=== PATIENT | female | born 1980 | race Caucasian/White ===

== ENCOUNTER 2016-09-15 11:36 | Inpatient (IN) | payer OTHER ==
[2016-09-15] MEDS ORDERED: TUBERCULIN PPD 5 TU/0.1ML SYRINGE (IN PATIENT USE ONLY) ID ONE (12:32)
[2016-09-15 13:02] LABS: BASOPHIL 0.3 % (0-2.0); EOSINOPHIL 0.5 % (0-4.5); MCHC 33.8 g/dl (32.0-36.0); MEAN CELL VOLUME 88.6 fl (80-96); MEAN PLT VOLUME 8.6 fl (7.5-11.1); NEUTROPHILS 71.5 % (42.8-82.8); PLATELET COUNT 197 K/MM3 (134-434); RDW 13.9 % (11.6-15.6); WHITE BLOOD COUNT 7.2 K/mm3 (4.0-10.0)
[2016-09-15 13:27] LABS: CALCIUM 8.2 mg/dL (8.5-10.1); CREATININE 0.7 mg/dL (0.55-1.02)
[2016-09-15 13:39] LABS: INR 0.91 (0.82-1.09)
[2016-09-15 13:42] LABS: ACTIVATED PTT 26.7 SECONDS (26.9-34.4)
[2016-09-15 13:54] VITALS: BMI 24.8
[2016-09-15] MEDS ORDERED: DINOPROSTONE 10 MG VAGINAL SUPPOSITORY VG ONE (17:16)
--- NOTE | 2016-09-15 17:17 | PN ---
Progress Note (short form) - Note Progress Note: 440 pm cx 1 cm, 50, vx -2 mr, clear , cervidil rba discussed, agreed , cervidil inserted
--- NOTE | 2016-09-15 17:24 | HP ---
Past Medical History - Primary Care Physician PCP:: Sacha Bajwa - Admission Chief Complaint: 39.4 weeks, rom, ama History of Present Illness: 36 yo f edc 09/18/16 by sono c/o rom since 930 am today, clear fluid, no pain, no fever, no dysuria. cx 1 cm, 50 vx -2 mr , clear , fhr cat 1, not aware of contraction, hx of vanishing twins, elevated 1 hr gtt, negative 3 hr History Source: Patient Limitations to Obtaining History: No Limitations - Past Medical History ...: 2 ...Para: 1 ...Term: 1 ...: 0 ...Spon : 0 ...Induced : 0 ...Multiple Gestation: 0 ...LMP: 12/03/15 ... Weeks Gestation by Dates: 41.0 ...EDC by Dates: 09/08/16 ...EDC by Sono: 09/18/16 - Past Surgical History Hx Myomectomy: No Hx Transabdominal Cerclage: No - Smoking History Smoking history: Never smoked Have you smoked in the past 12 months: No - Alcohol/Substance Use Hx Alcohol Use: No - Social History Usual Living Arrangement: Yes: With Spouse History of Recent Travel: No Home Medications - Allergies Allergies/Adverse Reactions: Allergies Allergy/AdvReac Type Severity Reaction Status Date / Time Penicillins Allergy Intermediate Difficulty Verified 09/15/16 13:03 Breathing - Home Medications Home Medications: Ambulatory Orders Ferrous Sulfate 325 mg PO DAILY 09/15/16 Vitamins (Sjr) - 1 tab PO DAILY 09/15/16 Review of Systems - Review of Systems Constitutional: reports: No Symptoms Eyes: reports: No Symptoms HENT: reports: No Symptoms Neck: reports: No Symptoms Cardiovascular: reports: No Symptoms Respiratory: reports: No Symptoms Gastrointestinal: reports: No Symptoms Genitourinary: reports: No Symptoms Breasts: reports: No Symptoms Reported Musculoskeletal: reports: No Symptoms Integumentary: reports: No Symptoms Neurological: reports: No Symptoms Endocrine: reports: No Symptoms Hematology/Lymphatic: reports: No Symptoms Psychiatric: reports: No Symptoms Physical Exam - Maternity Vital Signs: Vital Signs Temperature 97.9 F 09/15/16 14:00 Pulse Rate 102 H 09/15/16 16:00 Respiratory Rate 20 09/15/16 16:00 Blood Pressure 106/72 09/15/16 16:00 O2 Sat by Pulse Oximetry (%) Constitutional: Yes: Well Nourished, No Distress, Calm Eyes: Yes: WNL, Conjunctiva Clear, EOM Intact HENT: Yes: WNL, Atraumatic, Normocephalic Neck: Yes: WNL, Supple, Trachea Midline Cardiovascular: Yes: WNL, Regular Rate and Rhythm Breast(s): Yes: WNL - Abdominal Exam/OB Fundal Height: 40 Number of Fetuses: Single Presentation: Vertex Contractions: Yes Regularity: Irritability Intensity: Unaware Monitor Mode: External Heart Rate Location: [facility] Category: I Accelerations: Uniform Decelerations: None - Vaginal Exam/OB Vaginal Bleediing: No Speculum Exam: No Dilatation (cm): 1 cm Effacement (%): 50 Amniotic Membrane Status: Ruptured Nitrazine Test: Positive Amniotic Fluid: Yes: Clear Presentation: Vertex/Position Station: -2 - Physical Exam Edema: Yes Edema: LLE: Trace, RLE: Trace Deep Tendon Reflex Grade: Normal +2 Psychiatric: Yes: WNL - Labs Lab Results: CBC, BMP 09/15/16 12:35 09/15/16 12:35 Hemorrhage Risk Assessment - Risk Factors Risk Score: 0 Risk Level: Low Risk Problem List - Problems (1) with 39 completed weeks gestation Code(s): Z3A.39 - 39 WEEKS GESTATION OF (2) membrane rupture Code(s): JMX6072 - (3) Advanced maternal age (AMA) in Code(s): IIR1921 - Assessment/Plan plan admit, expectant management vs cervidil and pitocin induction discussed, agreed to have cervidil induction, rba expalined
[2016-09-15] MEDS ORDERED: PROMETHAZINE HCL 25 MG/1 ML VIAL IVPUSH ONE (21:47)
[2016-09-15] MEDS ORDERED: BUTORPHANOL TARTRATE 1 MG/ML VIAL IVPUSH PRN (21:47)
--- NOTE | 2016-09-15 21:47 | PN ---
Progress Note (short form) - Note Progress Note: cont to leak fluid, no pain cx 1 cm 50 vx -2 mr, fhr cat 1 , cervidil was removed , advised pitocin, rba discussed Problem List - Problems (1) with 39 completed weeks gestation Code(s): Z3A.39 - 39 WEEKS GESTATION OF (2) membrane rupture Code(s): TAC9017 - (3) Advanced maternal age (AMA) in Code(s): HQN2599 -
[2016-09-15] MEDS: OXYTOCIN 15 UNITS/ LR 250 ML 250 ML IVPB SCH (21:55)
[2016-09-15] MEDS: DEXTROSE 5%-LACTATED RINGERS 1,000 ML IV SCH (21:55)
[2016-09-15] MEDS ORDERED: OXYTOCIN 15 UNITS/ LR 250 ML 250 ML IVPB SCH (22:00)
[2016-09-16] MEDS ORDERED: FENTANYL/BUPIVACAINE/NS/PF - PCEA - 50 ML DISP.SYRIN EP SCH (02:45)
[2016-09-16] MEDS: ELECTROLYTE-148 SOLN 1,000 ML IV SCH ×2 (02:45→05:00)
[2016-09-16] MEDS ORDERED: CLINDAMYCIN 900 MG PREMIX IVPB 50 ML IVPB ONE (03:45)
[2016-09-16] MEDS ORDERED: ELECTROLYTE-148 SOLN 500 ML IV SCH (03:45)
[2016-09-16] MEDS: D5W-LR W/ 20 UNITS OXYTOCIN 1,000 ML IV SCH ×2 (07:15→08:44)
[2016-09-16] MEDS ORDERED: BENZOCAINE 28 GM HEMORRHOIDAL OINTMENT TP PRN (07:30)
[2016-09-16] MEDS ORDERED: WITCH HAZEL 50% (TUCKS) 40 PAD/JAR PAD TP PRN (07:30)
[2016-09-16] MEDS ORDERED: METHYLERGONOVINE MALEATE 0.2 MG/1 ML AMP IM PRN (07:30)
[2016-09-16] MEDS ORDERED: BISACODYL 10 MG SUPP.RECT RC PRN (07:30)
[2016-09-16] MEDS ORDERED: BENZOCAINE 20% 57 GM BOTTLE TP PRN (07:30)
[2016-09-16] MEDS: FERROUS SO4 325 MG TABLET (FP) PO SCH ×3 (09:07→22:00)
[2016-09-16] MEDS: ACETAMINOPHEN 325 MG TABLET (FP) PO PRN ×2 (09:08→17:52)
[2016-09-16] MEDS: PRENATAL VITAMINS W/ FOLIC ACID TABLET (FP) PO SCH (09:09)
[2016-09-16] MEDS ORDERED: CLINDAMYCIN 600MG PREMIX IVPB 50 ML IVPB SCH (09:45)
[2016-09-16] MEDS ORDERED: PRENATAL VITAMINS W/ FOLIC ACID TABLET (FP) PO SCH (10:00)
[2016-09-16] MEDS: IBUPROFEN 600 MG TABLET (FP) PO PRN (17:54)
[2016-09-16] MEDS: DEXTROSE 5%-LACTATED RINGERS 1,000 ML IV SCH (17:57)
[2016-09-16] MEDS: OXYTOCIN 15 UNITS/ LR 250 ML 250 ML IVPB SCH (22:40)
[2016-09-17] MEDS: IBUPROFEN 600 MG TABLET (FP) PO PRN (05:08)
[2016-09-17] MEDS: ACETAMINOPHEN 325 MG TABLET (FP) PO PRN (05:10)
[2016-09-17] MEDS: FERROUS SO4 325 MG TABLET (FP) PO SCH ×3 (09:26→22:08)
[2016-09-17] MEDS: PRENATAL VITAMINS W/ FOLIC ACID TABLET (FP) PO SCH (09:27)
[2016-09-17 09:54] LABS: BASOPHIL 0.5 % (0-2.0); MCH 29.6 pg (25.7-33.7); MCHC 33.1 g/dl (32.0-36.0); MEAN CELL VOLUME 89.4 fl (80-96); MEAN PLT VOLUME 8.6 fl (7.5-11.1); NEUTROPHILS 76.8 % (42.8-82.8); PLATELET COUNT 192 K/MM3 (134-434); RDW 14.2 % (11.6-15.6); WHITE BLOOD COUNT 11.7 K/mm3 (4.0-10.0)
[2016-09-17] MEDS ORDERED: SENNOSIDES/DOCUSATE COMBO (SENNA PLUS) TABLET (UD) PO PRN (22:00)
--- NOTE | 2016-09-17 23:28 | PN ---
Progress Note (short form) - Note Progress Note: ppd 1 doing well, no c/o voids ok CBC, BMP 09/17/16 09:39 09/15/16 12:35 Last Vital Signs Temp Pulse Resp BP Pulse Ox 98.3 F 98 H 18 100/51 100 09/17/16 21:39 09/17/16 21:39 09/17/16 21:39 09/17/16 21:39 09/16/16 08:33 abdomen soft, uterus firm, non tender lochia mild no calf tenderness plan ambulate , d/c home in am Problem List - Problems (1) with 39 completed weeks gestation Code(s): Z3A.39 - 39 WEEKS GESTATION OF (2) membrane rupture Code(s): [id number] - (3) Advanced maternal age (AMA) in Code(s): AGE2786 -
[2016-09-18 08:43] VITALS: BP 104/76; PULSE 67; TEMP 98.6
[2016-09-18] MEDS: FERROUS SO4 325 MG TABLET (FP) PO SCH ×2 (09:07→09:09)
[2016-09-18] MEDS: PRENATAL VITAMINS W/ FOLIC ACID TABLET (FP) PO SCH (09:08)
--- NOTE | 2016-09-18 10:53 | DS ---
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 Vital Signs: Vital Signs Temperature 98.6 F 09/18/16 08:41 Pulse Rate 67 09/18/16 08:41 Respiratory Rate 20 09/18/16 08:41 Blood Pressure 104/76 09/18/16 08:41 O2 Sat by Pulse Oximetry (%) 100 09/16/16 08:33 Constitutional: Yes: Well Nourished, No Distress, Calm Eyes: Yes: WNL, Conjunctiva Clear, EOM Intact HENT: Yes: WNL, Atraumatic, Normocephalic Neck: Yes: WNL, Supple, Trachea Midline Cardiovascular: Yes: WNL, Regular Rate and Rhythm Respiratory: Yes: WNL, Regular, CTA Bilaterally Gastrointestinal: Yes: WNL ...Rectal Exam: Yes: WNL Renal/: Yes: WNL ....Post : Yes: Uterus firm, Uterus non-tender, Slight lochia rubra Breast(s): Yes: WNL Musculoskeletal: Yes: WNL Extremities: Yes: WNL Edema: No Integumentary: Yes: WNL Neurological: Yes: WNL, Alert, Oriented ...Motor Strength: WNL Psychiatric: Yes: WNL, Alert, Oriented Labs: CBC, BMP 09/17/16 09:39 09/15/16 12:35 Delivery - Delivery Vaginal Delivery: Spontaneous (no complication) Type of Anesthesia: Local, Epidural Episiotomy/Laceration: 1st degree EBL (cc): 300 Delivery, Single - Stages of Labor Date 1st Stage Initiatied: 09/15/16 Time 1st Stage Initiated: 22:00 Date 2nd Stage Initiated: 09/16/16 Time 2nd Stage Initiated: 07:00 Date of Delivery: 09/16/16 Time of Delivery: 07:10 Time Placenta Delivered: 07:15 Placenta: Yes: Spontaneous - Condition of Maintenance Technician 3Rd Shift/Regional Sales Representative Present: No Infant Gender: Male Weight: 7 lb 6 oz Position: Left, OA Total Hours ROM (Hrs/Mins): 21hrs 45min - 1 Minute Total Score: 9 5 Minutes Total Score: 9 - Feeding Plan Initial Plan: Exclusive throughout hospitalization Discharge Summary Reason For Visit: LABOR Current Active Problems Advanced maternal age (AMA) in (Acute) membrane rupture (Acute) with 39 completed weeks gestation (Acute) Procedures: Principal: - Instructions Diet, Activity, Other Instructions: return to office in 6 weeks. call for appointment. Referrals: Sacha Bajwa MD [Staff Physician] - - Home Medications Comprehensive Discharge Medication List: Ambulatory Orders Ferrous Sulfate 325 mg PO DAILY 09/15/16 Vitamins (Sjr) - 1 tab PO DAILY 09/15/16 Ibuprofen [Motrin -] 600 mg PO QID #28 tablet 09/18/16
== END 2016-09-18 11:50 | disposition home or self-care (01) | DRG 775 ==
LOC: JLDR 11:36 → J3W 09-16 08:59
PROVIDERS: ADMIT Obstetrics & Gynecology; ATTEND Obstetrics & Gynecology
PROC: 0HQ9XZZ Repair Perineum Skin, External Approach (ICD-10-PCS; principal; 2016-09-16)
PROC: 10E0XZZ Delivery of Products of Conception, External Approach (ICD-10-PCS; 2016-09-16)
DX: O70.0 First degree perineal laceration during delivery (principal); Z3A.39 39 weeks gestation of pregnancy; Z37.0 Single live birth
CPT/HCPCS: 36415; 59409; 80048; 85025; 85610; 85730; 86593; 86762; 86850; 86900; 86901; 87340

== ENCOUNTER 2019-03-08 07:05 | Inpatient (IN) | payer BC ==
[2019-03-08 07:41] VITALS: BMI 23.8
[2019-03-08] MEDS ORDERED: BUTORPHANOL TARTRATE 1 MG/ML VIAL IVPUSH ONE (08:02)
[2019-03-08] MEDS ORDERED: PROMETHAZINE HCL 25 MG/1 ML VIAL IVPUSH ONE (08:02)
[2019-03-08] MEDS ORDERED: DEXTROSE 5%-LACTATED RINGERS 1,000 ML IV SCH (08:15)
[2019-03-08] MEDS ORDERED: OXYTOCIN 30 UNITS in 0.9% NS 30 UNIT/500 ML INFUS.BAG IVPB SCH (08:15)
--- NOTE | 2019-03-08 08:26 | HP ---
Past Medical History - Primary Care Physician PCP:: Sacha Bajwa - Admission Chief Complaint: 40.1 weeks, AMA History of Present Illness: 38 yo edc 03/07 40.1 weeks, ama admitted for pitocin induction, cx 3 cm 50 vx -3 ,mi, fhr cat 1 ,no contraction . pitocin risks discussed, ulternatives explained History Source: Patient Limitations to Obtaining History: No Limitations - Past Medical History ...: 3 ...Para: 2 ...Term: 2 ...LMP: 05/29/18 ...EDC by Sono: 03/07/19 - Past Surgical History Hx Myomectomy: No Hx Transabdominal Cerclage: No - Smoking History Smoking history: Never smoked Have you smoked in the past 12 months: No - Alcohol/Substance Use Hx Alcohol Use: No - Social History Usual Living Arrangement: Yes: With Spouse History of Recent Travel: No Home Medications - Allergies Allergies/Adverse Reactions: Allergies Allergy/AdvReac Type Severity Reaction Status Date / Time Penicillins Allergy Intermediate Difficulty Verified 09/15/16 13:03 Breathing - Home Medications Home Medications: Ambulatory Orders Vitamins (Sjr) - 1 tab PO DAILY 09/15/16 Review of Systems - Review of Systems Constitutional: reports: No Symptoms Eyes: reports: No Symptoms HENT: reports: No Symptoms Neck: reports: No Symptoms Cardiovascular: reports: No Symptoms Respiratory: reports: No Symptoms Gastrointestinal: reports: No Symptoms Genitourinary: reports: No Symptoms Breasts: reports: No Symptoms Reported Musculoskeletal: reports: No Symptoms Integumentary: reports: No Symptoms Neurological: reports: No Symptoms Endocrine: reports: No Symptoms Hematology/Lymphatic: reports: No Symptoms Psychiatric: reports: No Symptoms Physical Exam - Maternity Vital Signs: Vital Signs Temperature 98.6 F 03/08/19 07:36 Pulse Rate 120 H 03/08/19 07:36 Respiratory Rate 20 03/08/19 07:36 Blood Pressure 103/65 03/08/19 07:36 O2 Sat by Pulse Oximetry (%) Constitutional: Yes: Well Nourished, No Distress, Calm Eyes: Yes: WNL, Conjunctiva Clear, EOM Intact HENT: Yes: WNL, Atraumatic, Normocephalic Neck: Yes: WNL, Supple, Trachea Midline Cardiovascular: Yes: WNL, Regular Rate and Rhythm Breast(s): Yes: WNL - Abdominal Exam/OB Fundal Height: 40 Number of Fetuses: Single Presentation: Vertex Contractions: No Intensity: Unaware Monitor Mode: External Heart Rate Location: [facility] Category: I Accelerations: Uniform Decelerations: None - Vaginal Exam/OB Vaginal Bleediing: No Speculum Exam: No Dilatation (cm): 3cm Effacement (%): 50 Amniotic Membrane Status: Intact Presentation: Vertex/Position Station: -3 - Physical Exam Musculoskeletal: Yes: WNL Extremities: Yes: WNL Edema: LLE: Trace, RLE: Trace Deep Tendon Reflex Grade: Normal +2 ...Motor Strength: WNL Psychiatric: Yes: WNL Hemorrhage Risk Assessment - Risk Factors Medium Risk Factors: Yes: None High Risk Factors: Yes: None Risk Score: 1 Risk Level: Medium Risk Problem List - Problems (1) Post-term , 40-42 weeks of gestation Code(s): O48.0 - POST-TERM (2) Advanced maternal age (AMA) in Problems reviewed: Yes Code(s): [id number] - Assessment/Plan admit [facility] pitocin induction pain management
[2019-03-08] MEDS ORDERED: ELECTROLYTE-148 SOLN 1,000 ML IV SCH (08:30)
[2019-03-08 09:12] LABS: BASO % 0.6 % (0-2.0); EOS % 0.6 % (0-4.5); HEMATOCRIT 31.1 % (32.4-45.2); HEMOGLOBIN 10.7 GM/dL (10.7-15.3); LYMPH % 24.1 % (8-40); MCH 30.5 pg (25.7-33.7); MCHC 34.5 g/dl (32.0-36.0); MEAN CELL VOLUME 88.5 fl (80-96); MEAN PLT VOLUME 8.9 fl (7.5-11.1); MONO % 9.4 % (3.8-10.2); NEUT % 65.3 % (42.8-82.8); PLATELET COUNT 193 K/MM3 (134-434); RBC 3.52 M/mm3 (3.60-5.2); RDW 14.7 % (11.6-15.6); WHITE BLOOD COUNT 5.3 K/mm3 (4.0-10.0)
[2019-03-08 09:33] LABS: INR 0.92 (0.83-1.09); PROTHROMBIN TIME (PATIENT) 10.8 SEC (9.7-13.0)
[2019-03-08 09:45] LABS: BLOOD UREA NITROGEN 7.7 mg/dL (7-18); CALCIUM 8.3 mg/dL (8.5-10.1); CREATININE 0.7 mg/dL (0.55-1.3); POTASSIUM 4.3 mmol/L (3.5-5.1)
[2019-03-08] MEDS ORDERED: FENTANYL/BUPIVACAINE/NS/PF - PCEA - 50 ML DISP.SYRIN EP ONE (16:07)
[2019-03-08] MEDS ORDERED: NALOXONE HCL 0.4 MG/ML VIAL IVPUSH PRN (16:33)
[2019-03-08] MEDS ORDERED: FENTANYL/BUPIVACAINE/NS/PF - PCEA - 50 ML DISP.SYRIN EP SCH (16:45)
--- NOTE | 2019-03-08 16:48 | PN ---
Progress Note (short form) - Note Progress Note: cx 5 cm 80 vx -2 mi, fhr cat 1, regular contraction, wants epidural Problem List - Problems (1) Post-term , 40-42 weeks of gestation Code(s): O48.0 - POST-TERM (2) Advanced maternal age (AMA) in Code(s): [id number] -
[2019-03-08] MEDS ORDERED: OXYTOCIN 20 UNITS in 0.9% NS 20 UNIT/1,000 ML INFUS.BAG IV ONE (17:45)
[2019-03-08] MEDS ORDERED: LIDOCAINE HCL 1% PRESERVATIVE FREE - 30ML VIAL ONE (17:45)
[2019-03-08] MEDS ORDERED: BISACODYL 10 MG SUPP.RECT RC PRN (18:35)
[2019-03-08] MEDS ORDERED: METHYLERGONOVINE MALEATE 0.2 MG/1 ML AMP IM PRN (18:35)
[2019-03-08] MEDS ORDERED: BENZOCAINE 20% 57 GM BOTTLE TP PRN (18:35)
--- NOTE | 2019-03-08 18:35 | PN ---
Progress Note (short form) - Note Progress Note: had deep variable decel with contraction, after epidural, arom done, pitocin off . lt side, o2 , iv hydration , fluid clear , cx 8cm 100 vx 0 , scalp electrode applied Problem List - Problems (1) Post-term , 40-42 weeks of gestation Code(s): O48.0 - POST-TERM (2) Advanced maternal age (AMA) in Code(s): [id number] -
--- NOTE | 2019-03-08 18:44 | PN ---
Delivery - Delivery Vaginal Delivery: Spontaneous (cx fully dilated ,head delivered , ant. and post , shoulder with no difficulty , live baby boy, 9/9, first degree laceration degree with 2.0 chromic suture , ebl 500 cc, no complication) Type of Anesthesia: Epidural (cx fully dilated ,head on perinum , head delivered , naso pharynx suctioned , ant and post shoulder delivered, live baby boy 9/9. first degree laceration with 2.o chromic ,) Episiotomy/Laceration: Periurethral Extnsion/lac, Cervical Extension/lac EBL (cc): 500 Delivery, Single - Feeding Plan Initial Plan: Exclusive throughout hospitalization
[2019-03-08] MEDS ORDERED: D5W-LR W/ 20 UNITS OXYTOCIN 20 UNIT/1,000 ML INFUS.BAG IV SCH (18:45)
[2019-03-08] MEDS: WITCH HAZEL 50% (TUCKS) 40 PAD/JAR PAD TP PRN (20:10)
[2019-03-08] MEDS: BENZOCAINE 28 GM HEMORRHOIDAL OINTMENT TP PRN (20:10)
[2019-03-08] MEDS: IBUPROFEN 600 MG TABLET (FP) PO PRN (21:55)
[2019-03-08] MEDS: ACETAMINOPHEN 325 MG TABLET (FP) PO PRN (21:55)
[2019-03-09] MEDS: IBUPROFEN 600 MG TABLET (FP) PO PRN ×4 (02:06→19:38)
[2019-03-09] MEDS: ACETAMINOPHEN 325 MG TABLET (FP) PO PRN ×4 (02:08→19:39)
[2019-03-09] MEDS: FERROUS SO4 325 MG TABLET (FP) PO SCH ×3 (09:00→17:34)
[2019-03-09 09:02] LABS: BASO % 0.3 % (0-2.0); EOS % 0.7 % (0-4.5); HEMATOCRIT 28.3 % (32.4-45.2); HEMOGLOBIN 9.7 GM/dL (10.7-15.3); LYMPH % 15.7 % (8-40); MCH 30.6 pg (25.7-33.7); MCHC 34.3 g/dl (32.0-36.0); MEAN CELL VOLUME 89.2 fl (80-96); MEAN PLT VOLUME 9.2 fl (7.5-11.1); MONO % 6.9 % (3.8-10.2); NEUT % 76.4 % (42.8-82.8); PLATELET COUNT 161 K/MM3 (134-434); RBC 3.17 M/mm3 (3.60-5.2); RDW 14.6 % (11.6-15.6); WHITE BLOOD COUNT 10.1 K/mm3 (4.0-10.0)
[2019-03-09] MEDS: PRENATAL VITAMINS W/ FOLIC ACID TABLET (FP) PO SCH (09:44)
--- NOTE | 2019-03-09 10:21 | PN ---
Progress Note (short form) - Note Progress Note: ppd 1, no c/o , no dizziness , no excess vaginal bleeding CBC, BMP 03/09/19 08:41 03/08/19 08:45 Last Vital Signs Temp Pulse Resp BP Pulse Ox 97.6 F 55 L 18 86/52 L 100 03/09/19 06:00 03/09/19 06:00 03/09/19 06:00 03/09/19 06:00 03/08/19 17:40 uterus firm, non tender lochia mild no calf tenderness impressin anemia, asymptomatic advised iron, vit Problem List - Problems (1) Post-term , 40-42 weeks of gestation Code(s): O48.0 - POST-TERM (2) Advanced maternal age (AMA) in Code(s): [id number] -
[2019-03-09] MEDS: BENZOCAINE 28 GM HEMORRHOIDAL OINTMENT TP PRN (18:17)
[2019-03-09] MEDS: WITCH HAZEL 50% (TUCKS) 40 PAD/JAR PAD TP PRN (18:18)
[2019-03-09] MEDS ORDERED: SENNOSIDES/DOCUSATE COMBO (SENNA PLUS) TABLET (UD) PO PRN (22:00)
[2019-03-10] MEDS: ACETAMINOPHEN 325 MG TABLET (FP) PO PRN (06:36)
[2019-03-10] MEDS: IBUPROFEN 600 MG TABLET (FP) PO PRN (06:37)
[2019-03-10 08:06] VITALS: BP 102/61; PULSE 72; TEMP 98.8
[2019-03-10] MEDS: FERROUS SO4 325 MG TABLET (FP) PO SCH (09:00)
--- NOTE | 2019-03-10 09:24 | DS ---
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 Vital Signs: Vital Signs Temperature 98.8 F 03/10/19 08:02 Pulse Rate 72 03/10/19 08:02 Respiratory Rate 18 03/10/19 08:02 Blood Pressure 102/61 03/10/19 08:02 O2 Sat by Pulse Oximetry (%) 100 03/08/19 17:40 Constitutional: Yes: Well Nourished, No Distress, Calm Eyes: Yes: WNL, Conjunctiva Clear, EOM Intact HENT: Yes: WNL, Atraumatic, Normocephalic Neck: Yes: WNL, Supple, Trachea Midline Cardiovascular: Yes: WNL, Regular Rate and Rhythm Respiratory: Yes: WNL, Regular, CTA Bilaterally Gastrointestinal: Yes: WNL ...Rectal Exam: Yes: WNL Renal/: Yes: WNL ....Post : Yes: Uterus firm, Uterus non-tender, Slight lochia rubra Breast(s): Yes: WNL Musculoskeletal: Yes: WNL Extremities: Yes: WNL Edema: No Integumentary: Yes: WNL Neurological: Yes: WNL, Alert, Oriented ...Motor Strength: WNL Psychiatric: Yes: WNL, Alert, Oriented Labs: CBC, BMP 03/09/19 08:41 03/08/19 08:45 Delivery - Delivery Vaginal Delivery: Spontaneous (cx fully dilated ,head delivered , ant. and post , shoulder with no difficulty , live baby boy, 9/9, first degree laceration degree with 2.0 chromic suture , ebl 500 cc, no complication) Type of Anesthesia: Epidural Episiotomy/Laceration: Periurethral Extnsion/lac, Cervical Extension/lac EBL (cc): 500 Delivery, Single - Stages of Labor Date 1st Stage Initiatied: 03/08/19 Time 1st Stage Initiated: 15:00 Date 2nd Stage Initiated: 03/08/19 Time 2nd Stage Initiated: 17:40 Date of Delivery: 03/08/19 Time of Delivery: 17:58 Time Placenta Delivered: 18:08 Placenta: Yes: Spontaneous - Condition of Infant Registration Manager/Civil Engineering Director Present: Yes Name: Cuca Alcocer Gender: Male Weight: 8 lb 15 oz Position: Left, OA Total Hours ROM (Hrs/Mins): 58 min - 1 Minute Total Score: 9 5 Minutes Total Score: 9 - [place] Feeding Plan Initial Plan: Exclusive throughout hospitalization Discharge Summary Reason For Visit: INDUCTION OF LABOR Current Active Problems Advanced maternal age (AMA) in (Acute) Post-term , 40-42 weeks of gestation (Acute) Procedures: Principal: Hospital Course: no complication Condition: Good - Instructions Diet, Activity, Other Instructions: regular diet, no intercourse , follow up office 4 weeks, if fever, pain, heavy vaginal bleeding call Referrals: Sacha Bajwa MD [Staff Physician] - Disposition: HOME - Home Medications Comprehensive Discharge Medication List: Ambulatory Orders Vitamins (Sjr) - 1 tab PO DAILY 09/15/16 Ibuprofen [Motrin -] 600 mg PO TID #21 tablet 03/09/19
[2019-03-10] MEDS: PRENATAL VITAMINS W/ FOLIC ACID TABLET (FP) PO SCH (10:15)
== END 2019-03-10 11:10 | disposition home or self-care (01) | DRG 807 ==
LOC: JLDR 07:05 → J3W 19:30
PROVIDERS: ADMIT Obstetrics & Gynecology; ATTEND Obstetrics & Gynecology
PROC: 0HQ9XZZ Repair Perineum Skin, External Approach (ICD-10-PCS; principal; 2019-03-08)
PROC: 10E0XZZ Delivery of Products of Conception, External Approach (ICD-10-PCS; 2019-03-08)
DX: O48.0 Post-term pregnancy (principal); Z37.0 Single live birth; O70.0 First degree perineal laceration during delivery; Z3A.40 40 weeks gestation of pregnancy
CPT/HCPCS: 36415; 36600; 59409; 80048; 82803; 85025; 85610; 85730; 86593; 86850; 86900; 86901; 87389